=== PATIENT | male | born 1965 | race Caucasian/White ===

== ENCOUNTER 2017-11-25 06:48 | Emergency (ER) | payer OTHER ==
[~2017-11-25] VITALS: Ht 177.8 cm; Wt 83.0 kg
[~2017-11-25 06:48] MED LIST: AUGMENTIN875 MG PO; BUSPIRONE HCL10 MG PO; CLONAZEPAM1 MG PO; ESCITALOPRAM OX20 MG PO; GABAPENTIN600 MG PO; LAMOTRIGINE200 MG PO; MOTRIN600 MG PO; MOTRIN800 MG PO; RITALIN20 MG PO; WELLBUTRIN75 MG PO
[2017-11-25 07:46] LABS: HEMATOCRIT 45.1 % (38.0-50.0); HEMOGLOBIN 16.6 G/DL (12.5-16.6); MCH 32.5 PG (29.0-34.0); MCHC 36.8 G/DL (30.0-36.0); MCV 88.3 FL (86-99); PLATELET COUNT 343 K/uL (156-360); RBC DIS.WIDTH-CV 12.9 % (11.8-14.6); RBC DIS.WIDTH-SD 41.6 % (39-53); RED BLOOD COUNT 5.11 M/uL (4.00-5.50); WHITE BLOOD COUNT 21.9 K/uL (4.1-10.2)
[2017-11-25 08:15] LABS: AMPHETAMINE NEGATIVE (500 ng/mL); BARBITURATES NEGATIVE (200 ng/mL); BENZODIAZEPINES NEGATIVE (150 ng/mL); BUPRENORPHINE NEGATIVE (10 ng/mL); COCAINE NEGATIVE (150 ng/mL); METHADONE NEGATIVE (200 ng/mL); METHAMPHETAMINE NEGATIVE (500 ng/mL); OPIATES (MORPHINE) NEGATIVE (100 ng/mL); OXYCODONE NEGATIVE (100 ng/mL); PHENCYCLIDINE NEGATIVE (25 ng/mL); PROPOXYPHENE NEGATIVE (300 ng/mL); THC CANNABINOIDS PRESUMPTIVE POSITIVE (50 ng/mL); TRICYCLIC ANTIDEPRESSANTS PRESUMPTIVE POSITIVE (300 ng/mL)
[2017-11-25 08:19] LABS: TROP-I INTERPRETATION NEGATIVE; TROPONIN-I < 0.01 ng/mL (0.0-0.30)
[2017-11-25 08:28] LABS: ACETAMINOPHEN (TYLENOL) < 10 MCG/ML (10-30); ALBUMIN 5.2 G/DL (3.2-4.8); ALKALINE PHOSPHATASE 88 IU/L (3-129); ALT (GPT) 29 IU/L (3-49); AST (GOT) 38 IU/L (2-34); CHLORIDE 101 MEQ/L (99-109); CREATININE 1.7 MG/DL (0.6-1.3); GFR ESTIMATE (CALCULATED) 45 mL/min/ (58.99-99999); GLUCOSE 172 mg/dL (70-99); POTASSIUM 4.4 MEQ/L (3.7-5.4); SALICYLATE < 3.0 MG/DL (15-30); SERUM ETHYL ALCOHOL < 10 mg/dL; SODIUM 141 MEQ/L (136-147); TOTAL PROTEIN 8.3 G/DL (6.4-8.3); UREA NITROGEN (BUN) 15 mg/dL (9-23)
[2017-11-25 08:46] LABS: APPEARANCE CLOUDY ((CLEAR)); BILIRUBIN SMALL; BLOOD SMALL; COLOR AMBER ((YELLOW)); GLUCOSE (STRIP) 50; KETONES 20; LEUKOCYTES TRACE; NITRITE NEGATIVE; PROTEIN (STRIP) >=500; SPECIFIC GRAVITY 1.028 (1.000-1.030)
[2017-11-25 08:53] LABS: BACTERIA RARE /HPF; EPITHELIAL CELLS RARE /HPF; HYALINE CASTS TNTC /LPF; MUCUS 2+ /LPF; UCUL ADDED? NO; WHITE BLOOD CELLS 0-5 /HPF (0-5)
[2017-11-25] MEDS ORDERED: ATIVAN2 MG PO (13:20)
[2017-11-25 13:38] VITALS: BP 127/79
== END 2017-11-25 13:43 | disposition home or self-care (01) ==
LOC: EME 06:48
PROVIDERS: Physician Assistant
DX: F41.9 Anxiety disorder, unspecified (principal); M62.838 Other muscle spasm; E86.0 Dehydration; R11.2 Nausea with vomiting, unspecified; R25.1 Tremor, unspecified; Z72.0 Tobacco use
CPT/HCPCS: 71046; 80053; 81003; 84484; 84999; 85027; 90839; 93005; 99281; 99285; G0480; J2060; J7030